=== PATIENT | female | born 1990 | race Caucasian/White ===

== ENCOUNTER → 2024-08-24 | Outpatient (REF) | payer OTHER ==
[~2024-08-24] MED LIST: PREG-35 PO; SYMB16INH INH
[2024-08-24 15:53] LABS: AMPHETAMINES URINE REFLEX NEGATIVE (NEGATIVE); BARBITURATES URINE REFLEX NEGATIVE (NEGATIVE); BENZODIAZEPINES URINE REFLEX NEGATIVE (NEGATIVE); COCAINE METABOLITE URINE REFLE NEGATIVE (NEGATIVE); METHADONE URINE REFLEX NEGATIVE (NEGATIVE); OPIATES URINE REFLEX NEGATIVE (NEGATIVE); PHENCYCLIDINE URINE REFLEX NEGATIVE (NEGATIVE)
[2024-08-24 16:26] LABS: CANNABINOIDS URINE REFLEX PENDING CONFIRMATION (NEGATIVE)
[2024-08-28 06:07] LABS: Carboxy THC Conf, MS, UR 90 ng/mL (Cutoff=10)
== END ==
LOC: M PLALAB 14:13
PROVIDERS: ATTEND Advanced Practice Midwife
DX: Z34.93 Encounter for supervision of normal pregnancy, unspecified, third trimester (principal)
CPT/HCPCS: 80307; 87081; 87088; 87186; G0480

== ENCOUNTER 2024-08-28 05:39 | Inpatient (IN) | payer OTHER ==
[2024-08-28] VITALS (9 sets, daily range): BP systolic 119–133; BP diastolic 59–78; TEMP 97–98.1; O2SAT 98–99
[~2024-08-28] VITALS: Ht 152.4 cm; Wt 78.2 kg
[2024-08-28 06:37] LABS: PLATELET COUNT, AUTOMATED 270 10^3/uL (150-450)
[2024-08-28] MEDS: LACTATED RINGER'S 1000 ML IV STA (07:19)
[2024-08-28] MEDS ORDERED: KETOROLAC 30 MG/ML 1 ML VIAL As Ordered ONE (07:26)
[2024-08-28] MEDS ORDERED: dexAMETHasone 4 MG/ML 1 ML VIAL As Ordered ONE (07:26)
[2024-08-28] MEDS ORDERED: ONDANSETRON 4MG 2ML VIAL As Ordered ONE (07:26)
[2024-08-28] MEDS ORDERED: OXYTOCIN INJ 10UNITS/ML 1ML VIAL As Ordered ONE (07:27)
[2024-08-28] MEDS ORDERED: MORPHINE PRES-FREE INJ 10 MG/10 ML VIAL As Ordered ONE (07:27)
[2024-08-28] MEDS: BICITRA 30 ML SOLN UDC PO ONE (07:35)
[2024-08-28 07:36] LABS: HIV 1&2 SCREEN NEGATIVE (NEGATIVE)
[2024-08-28] MEDS: ceFAZolin SODIUM 2 GM in DEXTROSE 5% (D5W) ADV/MINI-BAG 50 ML IV ONE (07:36)
[2024-08-28] MEDS ORDERED: KETAMINE HCL 200 MG/20 ML VIAL As Ordered ONE (08:08)
[2024-08-28] MEDS ORDERED: MIDAZOLAM INJ 2 MG/2 ML VIAL As Ordered ONE (08:22)
[2024-08-28] MEDS ORDERED: TRANEXAMIC ACID 100 MG/ML 10ML VIAL As Ordered ONE (08:33)
[2024-08-28 08:45] LABS: CORD GAS ABE V -2.8; CORD GAS HCO3 V 21.8 MMOL/L; CORD GAS O2 SAT V 88.6 %; CORD GAS PCO2 V 37.5 mmHg; CORD GAS PH V 7.383 UNITS; CORD GAS PO2 V 44.9 mmHg; CORD GAS SBC V 22.0 MMOL/L; CORD GAS TCO2 V 23.0 MMOL/L
[2024-08-28 08:46] LABS: CORD GAS ABE A -1.9; CORD GAS HCO3 A 24.2 MMOL/L; CORD GAS O2 SAT A 37.4 %; CORD GAS PCO2 A 46.6 mmHg; CORD GAS PH A 7.333 UNITS; CORD GAS PO2 A 17.4 mmHg; CORD GAS SBC A 21.6 MMOL/L; CORD GAS TCO2 A 25.6 MMOL/L
[2024-08-28] MEDS ORDERED: MOM 30 ML SUSPENSION UDC PO PRN (08:55)
[2024-08-28] MEDS ORDERED: RHOGAM 300MCG (1500IU) INJ IM SCH (08:55)
[2024-08-28] MEDS ORDERED: ANUSOL HC CREAM 30 GM TOP PRN (08:55)
[2024-08-28] MEDS: PRENATAL VITAMINS CHEWABLE TABLET PO SCH (09:00)
[2024-08-28] MEDS ORDERED: diphenhydrAMINE 50 MG/ML VIAL IV PRN (09:05)
[2024-08-28] MEDS ORDERED: MEPERIDINE 25 MG/ML 1 ML VIAL IV PRN (09:05)
[2024-08-28] MEDS ORDERED: ONDANSETRON 4MG 2ML VIAL IV PRN (09:05)
[2024-08-28] MEDS ORDERED: NALOXONE INJ 0.4 MG/1 ML VIAL IV PRN ×2 (09:05)
[2024-08-28] MEDS ORDERED: **NOTE PATIENT COMMENT** MISC XX SCH (09:05)
[2024-08-28] MEDS: SLF 3 ML SYR IV SCH (09:05)
[2024-08-28] MEDS ORDERED: PHENYLephrine 500MCG 5ML (100MCG/ML) SYRINGE As Ordered ONE (09:08)
[2024-08-28] MEDS ORDERED: OXYTOCIN 30UNITS IN 0.9% NaCl 500ML IV BAG As Ordered ONE (09:24)
[2024-08-28] MEDS: OXYTOCIN DRIP 30 UNITS in IV 1 EA IV SCH (09:39)
[2024-08-28 14:29] LABS: HEPATITIS C VIRUS ABY INDEX < 0.02 INDEX (<0.8)
[2024-08-28] MEDS: KETOROLAC 30 MG/ML 1 ML VIAL IV SCH (14:59)
[2024-08-28] MEDS: ACETAMINOPHEN 500 MG TAB PO PRN (18:02)
[2024-08-29 02:05] VITALS: BP 128/63; O2SAT 99
[2024-08-29 06:07] LABS: PLATELET COUNT, AUTOMATED 294 10^3/uL (150-450)
[2024-08-29 06:25] VITALS: BP 119/78; O2SAT 97
[2024-08-29] MEDS: SIMETHICONE 80MG CHEW TAB PO PRN (08:00)
[2024-08-29 10:00] VITALS: BP 120/61; O2SAT 98
[2024-08-29] MEDS: IBUPROFEN 800 MG TAB PO SCH (10:30)
[2024-08-29 14:00] VITALS: BP 122/66; O2SAT 98
[2024-08-29 18:00] VITALS: BP 136/81; O2SAT 100
[2024-08-29 22:15] VITALS: BP 115/71; O2SAT 99
[2024-08-30 02:01] VITALS: BP 116/68; O2SAT 99
[2024-08-30 06:39] VITALS: BP 141/84; O2SAT 98
[2024-08-30] MEDS: MEASLES,MUMPS,RUBELLA VACCINE INJ (MMR-II) SC.IMMUN ONE (09:00)
== END 2024-08-30 13:20 | disposition home or self-care (01) | DRG 540 ==
LOC: M LDI 05:39 → M OBS 10:44
PROVIDERS: ADMIT Obstetrics & Gynecology; ATTEND Obstetrics & Gynecology
PROC: 0UB70ZZ Excision of Bilateral Fallopian Tubes, Open Approach (ICD-10-PCS; 2024-08-28)
PROC: 10D00Z1 Extraction of Products of Conception, Low, Open Approach (ICD-10-PCS; principal; 2024-08-28 07:30)
DX: O34.211 Maternal care for low transverse scar from previous cesarean delivery (principal); Z30.2 Encounter for sterilization; Z3A.39 39 weeks gestation of pregnancy; Z37.0 Single live birth